=== PATIENT | female | born 1980 | race African-American/Black ===

== ENCOUNTER → 2016-11-14 | Outpatient (CLI) | payer BC ==
[2016-11-14 14:44] VITALS: BP 151/84; PULSE 102; RESP 16; TEMP 98.1; BMI 53.0
--- NOTE | 2016-11-14 18:30 | HP ---
DATE OF ADMISSION: 11/14/2016 CHIEF COMPLAINT: Morbid obesity. HISTORY OF PRESENT ILLNESS: Patient is a 35-year-old female seen today in the office for the first time. She went to a recent seminar by Dr. Ramachandran. She is interested in sleeve gastrectomy. The patient suffers from hypertension and hidradenitis. Both of these medical issues should improve with surgical weight loss. The patient denies any history of DVT or dysphagia in the past. She has had marginal weight loss with medications and exercise programs in the past. Her heaviest she believes is around 310 and currently she is at 299 with BMI of 53. She is a teacher and teaches third grade and she would like to shoot for having surgery in January. Her 6 month supervised weight loss program has been waved. PAST MEDICAL HISTORY: Hypertension, hidradenitis. PAST SURGICAL HISTORY: Boomer teeth removal. MEDICATIONS: See list. ALLERGIES: None. PHYSICAL EXAM: Height 5 feet 3, weight 135.7. BMI of 53. HEENT: Normocephalic. Sclerae anicteric. CHEST: No deformities. ABDOMEN: Soft, nontender, nondistended. No palpable hernias. EXTREMITIES: Without edema. IMPRESSION: A 35-year-old female with morbid obesity. PLAN: Will proceed with upcoming sleeve gastrectomy and preoperative EGD. Risks were once again discussed with the patient in detail and these were noted to include but not limited to bleeding, infection, leak, stricture, abscess, peritonitis, fistula formation, poor weight loss, chronic reflux, respiratory failure, MA, PE, DVT, and . The patient understands and wishes to proceed.
== END ==
LOC: BARWHC3 14:32
PROVIDERS: ATTEND Surgery
DX: E66.01 Morbid (severe) obesity due to excess calories (principal)
CPT/HCPCS: 99201

== ENCOUNTER 2016-12-08 10:33 | Day surgery (SDC) | payer BC ==
[2016-12-07 08:19] VITALS: BMI 53.1
[~2016-12-08 10:33] MED LIST: LACTATED RINGERS 1,000 ML IV SCH; LIDOCAINE 1% 20 ML VIAL (10MG/ML) FOR IV START INTRADERMA PRN
[2016-12-08 11:14] VITALS: RESP 16; TEMP 98.7
[2016-12-08] MEDS ORDERED: PROPOFOL 10 MG/ML 20 ML VIAL IV ONE (11:32)
--- NOTE | 2016-12-08 11:44 | P.PCN ---
Date of Procedure: 12/08/16 Preoperative Diagnosis: Postoperative Diagnosis: Procedure(s) Performed: Preoperative Dx: GERD Postoperative Dx: Mild gastritis Procedure: EGD with Bx Anesthesia: Sedation Endoscopist: Dr. Alamo Specimens: Antrum Endoscopic Procedure: The patient was on the endoscopy table in the left decubitus position. The Olympus gastroscope was inserted into the oropharynx and passed under direct visualization to the region of the third portion of the duodenum. From that point the scope was slowly withdrawn inspecting all surfaces carefully. There were no neoplastic inflammatory or polypoid lesions throughout the duodenum. The pylorus was widely patent. The stomach was carefully inspected. There was mild gastritis present. A biopsy of the antrum took place to rule out H. pylori. Retroflexion revealed a normal hiatus. The esophagus was then carefully examined. There were no neoplastic inflammatory or polypoid lesions throughout the visualized esophagus. The patient was then taken to the recovery room in stable condition per anesthesia guidelines. Recommendations: Await biopsies results. Will plan coming sleeve gastrectomy. Implants: Indications for Procedure: Operative Findings: Description of Procedure:
[2016-12-08 12:13] VITALS: BP 104/72; PULSE 95
== END 2016-12-08 12:34 | disposition home or self-care (01) ==
LOC: ORWHC2ENDO 10:33
PROVIDERS: ATTEND Surgery
DX: K29.50 Unspecified chronic gastritis without bleeding (principal); E66.01 Morbid (severe) obesity due to excess calories; Z68.43 Body mass index [BMI] 50.0-59.9, adult; I10 Essential (primary) hypertension; Z79.899 Other long term (current) drug therapy
CPT/HCPCS: 81025; 88305; 88342; 43239; J2704

== ENCOUNTER → 2017-01-01 | Outpatient (CLI) | payer BC ==
[2017-01-01 12:39] VITALS: BMI 54.7
== END | disposition home or self-care (01) ==
LOC: BARWHC3 08:43
PROVIDERS: ATTEND Surgery
DX: E66.01 Morbid (severe) obesity due to excess calories (principal)
CPT/HCPCS: 97804

== ENCOUNTER → 2017-01-02 | Outpatient (CLI) | payer BC ==
[2017-01-02 14:54] VITALS: BP 104/70; PULSE 90; RESP 20; TEMP 98.6; BMI 54.3
--- NOTE | 2017-01-02 19:19 | P.BASOAP ---
Subjective Principal diagnosis: Morbid obesity Patient doing well today. She had a recent upper endoscopy. Gastritis was found on EGD. She has her psych evaluation scheduled for this Sunday. Objective - Vital Signs Vital signs: Vital Signs Temp 98.6 F 01/02/17 14:50 Pulse 90 01/02/17 14:50 Resp 20 01/02/17 14:50 BP 104/70 01/02/17 14:50 Pulse Ox Intake & Output 01/02/17 01/02/17 01/03/17 06:59 18:59 06:59 Weight 139.344 kg - Exam Abdomen: Soft, nontender, nondistended Assessment/Plan (1) Morbid obesity Narrative/Plan: Await psych letter. Patient I discussed the sleeve gastrectomy again in detail. The or october she'll consent form was reviewed in detail. All questions were answered. We'll proceed with sleeve gastrectomy hopefully by mid-January. Plan: Date: 01/02/17 Initial Weight: 135.794 kg Initial BMI: 53.0 Current Weight: 139.344 kg Current BMI: 54.3 Type of Surgery: Vertical Sleeve Gastrectomy Total Volume in Band: Previous Volume: Volume Removed: Volume Added: Band Size:
== END ==
LOC: BARWHC3 14:20
PROVIDERS: ATTEND Surgery
DX: E66.01 Morbid (severe) obesity due to excess calories (principal)
CPT/HCPCS: 99211

== ENCOUNTER → 2017-01-30 | Outpatient (CLI) | payer BC ==
[2017-01-30 11:57] LABS: Basophils % (A) 0 %; CH 27.2; CHCM 32.2; Eosinophils # (A) 0.1 k/uL (0-0.7); Eosinophils % (A) 1 %; HCT 37.7 % (34.0-46.0); HDW 2.23; HGB 12.5 gm/dL (11.4-16.0); Luc # (Auto) 0.17; Luc % (Auto) 3; Lymphocytes # (A) 1.9 k/uL (1.0-4.8); Lymphocytes % (A) 34 %; MCH 28.2 pg (25.0-35.0); MCHC 33.2 g/dL (31.0-37.0); MCV 84.8 fL (80.0-100.0); Mean Platelet Volume 7.7; Monocytes # (A) 0.3 k/uL (0-1.0); Monocytes % (A) 6 %; Neutrophils # (A) 3.1 k/uL (1.3-7.7); Neutrophils % (A) 56 %; RBC 4.45 m/uL (3.80-5.40); RDW 14.8 % (11.5-15.5); WBC 5.6 k/uL (3.8-10.6); WBC (Perox) 6.02
[2017-01-30 12:05] LABS: ALT 36 U/L (9-52); AST 29 U/L (14-36); Alkaline Phosphatase 59 U/L (38-126); Anion Gap 11 mmol/L; Blood Urea Nitrogen 13 mg/dL (7-17); Calcium 8.9 mg/dL (8.4-10.2); Carbon Dioxide 21 mmol/L (22-30); Chloride 106 mmol/L (98-107); Glucose 81 mg/dL (74-99); Non-African American GFR(MDRD) >60 (>60 ml/min/1.73 sqM); Potassium 4.1 mmol/L (3.5-5.1); Sodium 138 mmol/L (137-145); Total Bilirubin 0.4 mg/dL (0.2-1.3)
== END ==
LOC: LABPAT 11:18
PROVIDERS: ATTEND Surgery
DX: Z01.812 Encounter for preprocedural laboratory examination (principal)
CPT/HCPCS: 80053; 85025

== ENCOUNTER 2017-02-05 10:40 | Inpatient (IN) | payer BC ==
[~2017-02-05 10:40] MED LIST changes: +DEXAMETHASONE SOD PHOSPHATE 10 MG/ML 1 ML VIAL IV ONE; +ENOXAPARIN 40 MG/0.4 ML SYRINGE SQ ONE; -LACTATED RINGERS 1,000 ML IV SCH; -LIDOCAINE 1% 20 ML VIAL (10MG/ML) FOR IV START INTRADERMA PRN; +ONDANSETRON 4 MG/2 ML VIAL IVP ONE; +ceFAZolin 3 GM in SODIUM CHLORIDE 0.9% 100 ML IVPB ONE
[2017-02-05] MEDS: LACTATED RINGERS 1,000 ML IV SCH (13:35)
[2017-02-05] MEDS ORDERED: LIDOCAINE 1% 20 ML VIAL (10MG/ML) FOR IV START INTRADERMA ONE (13:35)
--- NOTE | 2017-02-05 14:44 | P.GSHP ---
History of Present Illness H&P Date: 02/05/17 Chief Complaint: Obesity Patient is well known to our service. The patient is been followed since October of this year for morbid obesity. She is interested in sleeve gastrectomy. The patient suffers from hypertension and hidradenitis. She had an upper endoscopy showing just mild gastritis. No history of DVT or dysphagia. BMI is 53. Past Medical History Past Medical History: Hypertension, Skin Disorder Additional Past Medical History / Comment(s): takes vibramycin for acne History of Any Multi-Drug Resistant Organisms: None Reported Past Surgical History: No Surgical Hx Reported Additional Past Surgical History / Comment(s): wisdom teeth Past Anesthesia/Blood Transfusion Reactions: No Reported Reaction Additional Past Anesthesia/Blood Transfusion Reaction / Comment(s): NEVER HAD GENERAL ANETHESIA Past Psychological History: No Psychological Hx Reported Smoking Status: Never smoker Past Alcohol Use History: Occasional Past Drug Use History: None Reported - Past Family History Mother Family Medical History: No Reported History Medications and Allergies Home Medications Medication Instructions Recorded Confirmed Type Doxycycline Hyclate [Vibramycin] 100 mg PO DAILY 11/15/16 01/29/17 History Spironolactone 25 mg PO QAM 11/15/16 01/29/17 History Multivitamins, Thera [Multivitamin 1 tab PO DAILY 01/29/17 01/29/17 History (formulary)] Naproxen Sodium [Aleve] 220 - 440 mg PO Q6H PRN 01/29/17 01/29/17 History Allergies Allergy/AdvReac Type Severity Reaction Status Date / Time No Known Allergies Allergy Verified 02/05/17 13:17 Surgical - Exam Vital Signs Temp Pulse Resp BP Pulse Ox 97.5 F L 74 16 125/79 99 02/05/17 13:25 02/05/17 13:25 02/05/17 13:25 02/05/17 13:25 02/05/17 13:25 Physical exam: General: Well-developed, well-nourished HEENT: Normocephalic, sclerae nonicteric Abdomen: Nontender, nondistended Extremities: No edema Neuro: Alert and oriented Assessment and Plan (1) Morbid obesity Narrative/Plan: Will proceed with sleeve gastrectomy at this time. Risks have been reviewed with the patient on multiple occasions and are noted to include but not limited to bleeding, infection, stricture formation, reflux, leak, abscess, fistula formation, poor weight loss, [place], PE, DVT, and . She understands and wishes to proceed. Status: Acute
[2017-02-05] MEDS ORDERED: MIDAZOLAM 2 MG/2 ML VIAL ONE (14:58)
[2017-02-05] MEDS ORDERED: ROCURONIUM BROMIDE 10 MG/ML 10 ML VIAL IV ONE (14:58)
[2017-02-05] MEDS ORDERED: LIDOCAINE 1% INJ 10MG/ML (20 ML MDV) ONE (14:58)
[2017-02-05] MEDS ORDERED: SUCCINYLCHOLINE CHLORIDE VIAL 200 MG/10 ML VIAL IV ONE (14:58)
[2017-02-05] MEDS ORDERED: fentaNYL (PF) 50 MCG/ML 2 ML AMP ONE (14:58)
[2017-02-05] MEDS ORDERED: GLYCOPYRROLATE 0.2 MG/ML 2 ML VIAL ONE (14:58)
[2017-02-05] MEDS ORDERED: METHYLENE BLUE 10 MG/ML 1 ML VIAL ONE (14:58)
[2017-02-05] MEDS ORDERED: LABETALOL 5 MG/ML VIAL MDV ONE (14:58)
[2017-02-05] MEDS ORDERED: PROPOFOL 10 MG/ML 20 ML VIAL IV ONE (14:58)
[2017-02-05] MEDS ORDERED: LACTATED RINGERS 1,000 ML IV ONE (15:15)
[2017-02-05] MEDS ORDERED: BUPIVACAINE-EPI 0.5%-1:200,000 10 ML VIAL SQ ONE ×2 (15:41→17:07)
[2017-02-05] MEDS: HYDROmorphone 1 MG/ML 1 ML SYRINGE IVP PRN ×6 (17:23→21:42)
[2017-02-05] MEDS ORDERED: NALOXONE 0.4 MG/ML 1 ML VIAL IV PRN (17:37)
[2017-02-05] MEDS ORDERED: diphenhydrAMINE 50 MG/ML 1 ML VIAL IVP PRN (17:37)
[2017-02-05] MEDS ORDERED: ACETAMINOPHEN IV (For NPO) 1,000 MG in EMPTY BAG 1 BAG IVPB ONE (17:37)
--- NOTE | 2017-02-05 17:45 | P.OP ---
Date of Procedure: 02/05/17 Preoperative Diagnosis: Postoperative Diagnosis: Procedure(s) Performed: PREOPERATIVE DIAGNOSIS: Morbid obesity, hypertension POSTOPERATIVE DIAGNOSIS: Same PROCEDURE: Laparoscopic sleeve gastrectomy SURGEON: Jasmeet EBL: Minimal ANESTHESIA: General COMPLICATIONS: None OPERATIVE PROCEDURE: Patient was placed in the operating table in the supine position. She was placed under general anesthesia at that time. The abdomen was prepped and draped in sterile fashion after the patient was placed in lithotomy. A 5 mm optical trocar was used to enter the abdominal cavity in the left upper quadrant. Insufflation took place to 15 millimeters mercury. An additional right subxiphoid 5 mm trocar was then placed under direct visualization and then removed. 2 additional 5 mm trochars were placed in the right upper quadrant and left upper quadrant under direct visualization and a 15 mm trocar in the supraumbilical location. The liver was retracted using a medium Jose Francisco liver retractor through the right subxiphoid trocar site. The hiatus was inspected. The patient had no visible hiatal hernia At that point I moved to the mid aspect of the greater curvature the stomach. The short gastric vasculature was divided using a LigaSure device proximally. I then switched and divided the short gastrics distally to a 3-4 cm from the pylorus. The dissection took place up to the left diaphragmatic crura at that point. The posterior short gastrics were likewise divided using the LigaSure device. Once the stomach was fully mobilized the blunt tipped 40-Croat[place] bougie dilator was advanced into the stomach and advanced all the way to the prepyloric location. A black echelon 60 stapler was utilized and fired tangentially across the antrum taking care to avoid narrowing at the incisura angularis. Subsequent firings of the stapler took place. A total of 4 green echelon 60 staplers with seam guard took place proximally staying on the outer edge of our dilator. Once we reached the most proximal portion of the stomach a single firing of the gold echelon 60 stapler without seem guard took place. The oral gastric tube was reinserted. The stomach was insufflated with approximately 100 mL of methylene blue. No evidence of leak or obstruction was seen. The distal aspect of the sleeve was then reapproximated to the gastrosplenic and gastrocolic ligament using a short running 2-0 strata fix suture. This was done to prevent kinking or twisting of the sleeve. Tisseel fibrin glue was used along the length of the staple line. The stomach remnant was removed from the 15 mm trocar site without difficulty. The fascia at the 15 more site was closed using interrupted 0 Vicryl sutures with the laparoscopic suture passer and [place] technique. The insufflation was evacuated. The skin at all 5 incisions were closed using 4-0 Monocryl sutures. Steri-Strips and sterile dressings were then applied. DISPOSITION: Stable to recovery room Implants: Indications for Procedure: Operative Findings: Description of Procedure:
[2017-02-05] MEDS ORDERED: KETOROLAC 30 MG/ML 1 ML VIAL IVP ONE (17:52)
[2017-02-05] MEDS ORDERED: hydrALAZINE HCL 20 MG/ML 1 ML VIAL IVP ONE (17:53)
[2017-02-05] MEDS: 0.9% NACL WITH KCL 20 MEQ/L 1,000 ML IV SCH (19:41)
[2017-02-05] MEDS: ONDANSETRON 4 MG/2 ML VIAL IVP PRN (19:44)
[2017-02-05] MEDS: ALBUTEROL NEBULIZED 2.5 MG/3 ML INHALATION SCH (21:39)
[2017-02-06] MEDS: HYDROmorphone 1 MG/ML 1 ML SYRINGE IVP PRN ×4 (00:41→08:00)
[2017-02-06] MEDS: 0.9% NACL WITH KCL 20 MEQ/L 1,000 ML IV SCH ×2 (02:11→11:56)
[2017-02-06] MEDS: ONDANSETRON 4 MG/2 ML VIAL IVP PRN (04:06)
[2017-02-06] MEDS: LACTATED RINGERS 1,000 ML IV SCH (07:38)
[2017-02-06] MEDS: ENOXAPARIN 40 MG/0.4 ML SYRINGE SQ SCH ×2 (07:40→20:23)
[2017-02-06] MEDS: PANTOPRAZOLE 40 MG/10 ML VIAL IV SCH ×2 (07:40→08:44)
[2017-02-06 08:43] LABS: Basophils % (A) 0 %; CH 28.2; CHCM 32.1; Eosinophils % (A) 0 %; HCT 35.6 % (34.0-46.0); HDW 2.29; HGB 11.2 gm/dL (11.4-16.0); Luc # (Auto) 0.12; Luc % (Auto) 1; Lymphocytes # (A) 1.2 k/uL (1.0-4.8); Lymphocytes % (A) 12 %; MCH 27.9 pg (25.0-35.0); MCHC 31.6 g/dL (31.0-37.0); MCV 88.4 fL (80.0-100.0); Monocytes # (A) 0.5 k/uL (0-1.0); Monocytes % (A) 5 %; Neutrophils # (A) 8.3 k/uL (1.3-7.7); Neutrophils % (A) 82 %; RBC 4.03 m/uL (3.80-5.40); RDW 15.7 % (11.5-15.5); WBC 10.1 k/uL (3.8-10.6); WBC (Perox) 9.71
[2017-02-06] MEDS ORDERED: SODIUM CHLORIDE 0.9% 1,000 ML BAG ONE (08:44)
[2017-02-06] MEDS: 1: MVI, ADULT NO.4 WITH VIT K 10 ML, THIAMINE 100 MG, FOLIC ACID 1 MG, POTASSIUM CHLORID IV SCH ×12 (08:44→20:16)
[2017-02-06] MEDS: SIMETHICONE 40 MG/0.6 ML DROPS 2,000 MG/30 ML BOTTLE PO PRN ×2 (08:45→16:34)
[2017-02-06] MEDS: HYOSCYAMINE ORAL DROPS 1.875 MG/15 ML BOTTLE PO PRN ×2 (08:45→20:24)
[2017-02-06 09:04] LABS: Anion Gap 9 mmol/L; Blood Urea Nitrogen 6 mg/dL (7-17); Calcium 8.3 mg/dL (8.4-10.2); Carbon Dioxide 20 mmol/L (22-30); Chloride 106 mmol/L (98-107); Magnesium 1.7 mg/dL (1.6-2.3); Non-African American GFR(MDRD) >60 (>60 ml/min/1.73 sqM); Phosphorous 3.1 mg/dL (2.5-4.5); Potassium 4.6 mmol/L (3.5-5.1); Sodium 135 mmol/L (137-145)
[2017-02-06] MEDS: ALBUTEROL NEBULIZED 2.5 MG/3 ML INHALATION SCH ×4 (09:26→19:52)
--- NOTE | 2017-02-06 09:36 | FL ---
SINGLE CONTRAST UPPER GI EXAMINATION: CLINICAL HISTORY: 36-year-old female postop bariatric surgery, gastric sleeve yesterday. TECHNIQUE: Single contrast exam performed with 50 ml Omnipaque 350 contrast. Total fluoroscopy time: 27 seconds. Total images: 20. FINDINGS: The patient swallowed oral contrast without difficulty or delay. Esophageal peristalsis and motility are within normal limits. There is mild pooling of contrast in the lower esophagus after consecutive swallows. However, there is otherwise good passage of contrast across the GE junction into the stoma ch. There are postsurgical changes of sleeve gastrectomy with a diffusely narrowed stomach. Oral cont rast passes into the duodenum. There is no evidence of contrast extravasation to suggest leak. No pos tsurgical free air seen. IMPRESSION: No evidence of leak status post sleeve gastrectomy. There is mild pooling of contrast in the lower es ophagus after consecutive swallows. No significant obstruction.
[2017-02-06] MEDS: KETOROLAC 30 MG/ML 1 ML VIAL IVP SCH ×3 (11:54→23:47)
--- NOTE | 2017-02-06 11:59 | P.CONS ---
History of Present Illness - Reason for Consult Consult date: 02/06/17 Medical management - Chief Complaint Morbid obesity - History of Present Illness This is a 36-year-old female with past medical history noted below significant for morbid obesity has admitted to the hospital for elective laparoscopic sleeve gastrectomy. Patient is postoperative day #1. She tolerated the procedure well. No complications reported. She is currently on liquid diet with good tolerance. She does not have any specific concerns or complaints. I was asked to see her for medical management. Review of Systems Review of system: 14 points review of systems were obtained and were negative except to what were mentioned in the HPI. Past Medical History Past Medical History: Hypertension, Skin Disorder Additional Past Medical History / Comment(s): takes vibramycin for acne History of Any Multi-Drug Resistant Organisms: None Reported Past Surgical History: No Surgical Hx Reported Additional Past Surgical History / Comment(s): wisdom teeth Past Anesthesia/Blood Transfusion Reactions: No Reported Reaction Additional Past Anesthesia/Blood Transfusion Reaction / Comm: NEVER HAD GENERAL ANETHESIA Past Psychological History: No Psychological Hx Reported Smoking Status: Never smoker Past Alcohol Use History: Occasional Past Drug Use History: None Reported - Past Family History Mother Family Medical History: No Reported History Medications and Allergies Home Medications Medication Instructions Recorded Confirmed Type Doxycycline Hyclate [Vibramycin] 100 mg PO DAILY 11/15/16 02/05/17 History Spironolactone 25 mg PO QAM 11/15/16 02/05/17 History Multivitamins, Thera [Multivitamin 1 tab PO DAILY 01/29/17 02/05/17 History (formulary)] Naproxen Sodium [Aleve] 220 - 440 mg PO Q6H PRN 01/29/17 02/05/17 History Allergies Allergy/AdvReac Type Severity Reaction Status Date / Time No Known Allergies Allergy Verified 02/05/17 18:09 Physical Exam Vitals: Vital Signs Temp Pulse Pulse Pulse Resp BP BP 02/06/17 11:00 98.1 F 63 17 142/64 02/06/17 09:40 76 02/06/17 09:26 68 02/06/17 07:57 98.1 F 65 16 128/66 02/06/17 02:00 98.0 F 72 16 122/65 02/05/17 21:48 85 02/05/17 21:44 66 02/05/17 19:00 98.1 F 72 16 137/71 02/05/17 18:07 145/81 02/05/17 18:02 162/91 02/05/17 17:57 69 16 164/97 02/05/17 17:42 60 16 153/95 02/05/17 17:26 59 L 16 148/92 02/05/17 17:11 97.2 F L 69 16 136/86 02/05/17 13:25 97.5 F L 74 16 125/79 Pulse Ox 02/06/17 11:00 02/06/17 09:40 02/06/17 09:26 02/06/17 07:57 96 02/06/17 02:00 97 02/05/17 21:48 02/05/17 21:44 97 02/05/17 19:00 98 02/05/17 18:07 02/05/17 18:02 02/05/17 17:57 95 02/05/17 17:42 94 L 02/05/17 17:26 99 02/05/17 17:11 100 02/05/17 13:25 99 Intake and Output 02/05/17 02/06/17 02/06/17 22:59 06:59 14:59 Intake Total 1140 1200 Output Total 20 Balance 1120 1200 Intake: IV 850 Intake, IV Titration 290 1200 Amount 0.9% NaCl with KCl 20 Meq 150 1200 /l 1,000 ml @ 150 mls/hr IV .Q6H40M [facility] Rx#: [id number] Lactated Ringers 1,000 ml 140 @ 20 mls/hr IV .Q24H [facility] Rx#:[id number] Output: Estimated Blood Loss 20 Other: Voiding Method Toilet General: The patient is awake and alert, in no distress Eye: there is normal conjunctiva bilaterally. Neck: The neck is supple, there is no JVD. Cardiovascular: Normal S1-S2, no S3-S4, no murmurs. Respiratory: Lungs clear to auscultation bilaterally Gastrointestinal: Abdomen is soft, nontender Musculoskeletal: There is no pedal edema. Neurological:. Speech is normal. Skin: Skin is warm and dry Results CBC & Chem 7: 02/06/17 08:10 02/06/17 08:10 Labs: Abnormal Lab Results - Last 24 Hours (Table) 02/06/17 02/06/17 Range/Units 08:10 08:10 Hgb 11.2 L (11.4-16.0) gm/dL RDW 15.7 H (11.5-15.5) % Neutrophils # 8.3 H (1.3-7.7) k/uL Sodium 135 L (137-145) mmol/L Carbon Dioxide 20 L (22-30) mmol/L BUN 6 L (7-17) mg/dL Calcium 8.3 L (8.4-10.2) mg/dL Assessment and Plan Plan: 1. Morbid obesity postoperative day #1 status post laparoscopic sleeve gastrectomy 2. Essential hypertension: Blood pressure well controlled Today, I reviewed her medication list lab work results. Continue current management. Encouraged oral hydration. Thank you very much for the consultation.
[2017-02-06] MEDS: SPIRONOLACTONE 25 MG TAB PO SCH (14:32)
[2017-02-06 15:06] VITALS: RESP 16
[2017-02-06 15:27] VITALS: BMI 52.6
[2017-02-06] MEDS: HYDROcodone/APAP 5-325MG 1 EACH TAB PO PRN ×2 (16:34→20:24)
--- NOTE | 2017-02-06 17:58 | P.PN ---
Subjective Principal diagnosis: Morbid obesity Patient seems to be doing well today. Mild nausea. Some hiccups. Overall pain is well-controlled. Upper GI today shows no evidence of leak or obstruction. Objective - Vital Signs Vital signs: Vital Signs Temp 97.4 F L 02/06/17 15:04 Pulse 70 02/06/17 15:04 Resp 16 02/06/17 15:04 BP 139/84 02/06/17 15:04 Pulse Ox 97 02/06/17 15:04 Intake & Output 02/05/17 02/06/17 02/06/17 18:59 06:59 18:59 Intake Total 1950 1490 900 Output Total 20 Balance 1930 1490 900 Weight 134.8 kg 134.8 kg Intake: IV 1950 Intake, IV Titration 1490 900 Amount 0.9% NaCl with KCl 20 Meq 1350 300 /l 1,000 ml @ 150 mls/hr IV .Q6H40M [facility] Rx#: [id number] Lactated Ringers 1,000 ml 140 @ 20 mls/hr IV .Q24H [facility] Rx#:[id number] Mvi, Adult No.4 with Vit 600 K 10 ml Thiamine 100 mg Folic Acid 1 mg Potassium Chloride 20 meq In Sodium Chloride 0.9% 1, 000 ml @ 100 mls/hr IV . BY DURATION [facility] Rx#: [id number] Output: Estimated Blood Loss 20 Other: Voiding Method Toilet - Labs CBC & Chem 7: 02/06/17 08:10 02/06/17 08:10 Labs: Abnormal Lab Results - Last 24 Hours (Table) 02/06/17 02/06/17 Range/Units 08:10 08:10 Hgb 11.2 L (11.4-16.0) gm/dL RDW 15.7 H (11.5-15.5) % Neutrophils # 8.3 H (1.3-7.7) k/uL Sodium 135 L (137-145) mmol/L Carbon Dioxide 20 L (22-30) mmol/L BUN 6 L (7-17) mg/dL Calcium 8.3 L (8.4-10.2) mg/dL Assessment and Plan (1) Morbid obesity Narrative/Plan: Continue bariatric liquid diet. Increase ambulation. Monitor fluid intake. Status: Acute
[2017-02-07] MEDS: SIMETHICONE 40 MG/0.6 ML DROPS 2,000 MG/30 ML BOTTLE PO PRN (03:29)
[2017-02-07] MEDS: HYDROcodone/APAP 5-325MG 1 EACH TAB PO PRN ×2 (03:29→12:18)
[2017-02-07] MEDS: KETOROLAC 30 MG/ML 1 ML VIAL IVP SCH ×3 (07:14→18:00)
[2017-02-07] MEDS: SPIRONOLACTONE 25 MG TAB PO SCH (07:15)
[2017-02-07] MEDS: ENOXAPARIN 40 MG/0.4 ML SYRINGE SQ SCH (07:15)
[2017-02-07] MEDS: MULTIVITAMINS, THERA 1 EACH TAB PO SCH ×3 (07:15→18:05)
[2017-02-07] MEDS: PANTOPRAZOLE 40 MG/10 ML VIAL IV SCH (07:15)
[2017-02-07] MEDS: ALBUTEROL NEBULIZED 2.5 MG/3 ML INHALATION SCH ×3 (07:44→15:42)
[2017-02-07 07:48] LABS: Basophils % (A) 0 %; CH 27.5; CHCM 31.7; Eosinophils % (A) 0 %; HCT 33.5 % (34.0-46.0); HDW 2.27; HGB 10.9 gm/dL (11.4-16.0); Luc # (Auto) 0.12; Luc % (Auto) 2; Lymphocytes % (A) 28 %; MCH 28.4 pg (25.0-35.0); MCHC 32.7 g/dL (31.0-37.0); MCV 87.1 fL (80.0-100.0); Mean Platelet Volume 8.4; Monocytes # (A) 0.4 k/uL (0-1.0); Monocytes % (A) 6 %; Neutrophils # (A) 4.6 k/uL (1.3-7.7); Neutrophils % (A) 64 %; RBC 3.84 m/uL (3.80-5.40); RDW 15.1 % (11.5-15.5); WBC 7.1 k/uL (3.8-10.6); WBC (Perox) 7.25
[2017-02-07 08:00] LABS: Anion Gap 8 mmol/L; Blood Urea Nitrogen 8 mg/dL (7-17); Calcium 8.2 mg/dL (8.4-10.2); Carbon Dioxide 21 mmol/L (22-30); Chloride 108 mmol/L (98-107); Glucose 76 mg/dL (74-99); Non-African American GFR(MDRD) >60 (>60 ml/min/1.73 sqM); Potassium 4.3 mmol/L (3.5-5.1); Sodium 137 mmol/L (137-145)
[2017-02-07] MEDS ORDERED: BISACODYL 5 MG TABLET.DR PO PRN (08:00)
[2017-02-07] MEDS: LACTATED RINGERS 1,000 ML IV SCH (10:36)
--- NOTE | 2017-02-07 12:51 | P.PN ---
Subjective Patient is doing well today. No events overnight. Objective - Vital Signs Vital signs: Vital Signs Temp 97.2 F L 02/07/17 07:00 Pulse 90 02/07/17 08:06 Resp 16 02/07/17 07:46 BP 142/87 02/07/17 07:00 Pulse Ox 98 02/07/17 07:00 Intake & Output 02/06/17 02/07/17 02/07/17 18:59 06:59 18:59 Intake Total 900 1790 Balance 900 1790 Weight 134.8 kg Intake: Intake, IV Titration 900 1200 Amount 0.9% NaCl with KCl 20 Meq 300 /l 1,000 ml @ 150 mls/hr IV .Q6H40M [facility] Rx#: [id number] Mvi, Adult No.4 with Vit 600 1200 K 10 ml Thiamine 100 mg Folic Acid 1 mg Potassium Chloride 20 meq In Sodium Chloride 0.9% 1, 000 ml @ 100 mls/hr IV . BY DURATION [facility] Rx#: [id number] Oral 590 Other: Voiding Method Toilet Toilet # Voids 2 - Exam General: The patient is awake and alert, in no distress Eye: there is normal conjunctiva bilaterally. Neck: The neck is supple, there is no JVD. Cardiovascular: Normal S1-S2, no S3-S4, no murmurs. Respiratory: Lungs clear to auscultation bilaterally Gastrointestinal: Abdomen is soft, nontender Musculoskeletal: There is no pedal edema. Neurological:. Speech is normal. Skin: Skin is warm and dry - Labs CBC & Chem 7: 02/07/17 06:53 02/07/17 06:53 Labs: Abnormal Lab Results - Last 24 Hours (Table) 02/07/17 02/07/17 Range/Units 06:53 06:53 Hgb 10.9 L (11.4-16.0) gm/dL Hct 33.5 L (34.0-46.0) % Chloride 108 H (98-107) mmol/L Carbon Dioxide 21 L (22-30) mmol/L Calcium 8.2 L (8.4-10.2) mg/dL Assessment and Plan Plan: 1. Morbid obesity postoperative day #2 status post laparoscopic sleeve gastrectomy 2. Essential hypertension: Blood pressure well controlled Today, I reviewed her medication list lab work results. Continue same home medication upon discharge. Vitamin supplement as directed by bariatric surgery clinic. Medically cleared for discharge.
[2017-02-07 14:54] VITALS: BP 137/79; PULSE 80; TEMP 97.9
[2017-02-07] MEDS: 1: MVI, ADULT NO.4 WITH VIT K 10 ML, THIAMINE 100 MG, FOLIC ACID 1 MG, POTASSIUM CHLORID IV SCH ×6 (18:02)
[2017-02-07] MEDS ORDERED: SODIUM CHLORIDE 0.9% 1,000 ML BAG ONE (18:02)
--- NOTE | 2017-02-07 18:49 | P.DS ---
Providers Date of admission: 02/05/17 12:42 Expected date of discharge: 02/07/17 Attending physician: David Alamo Consults: 02/05/17 17:37 Consult Physician Routine Consulting Provider: Jania Carpenter Consult Reason/Comments: Medical management Do you want consulting provider notified?: Yes Primary care physician: Love Jamil - Discharge Diagnosis(es) (1) Morbid obesity Patient admitted for elective sleep gastrectomy. Her postoperative upper GI shows no evidence of leak or obstruction. She was doing well at this time. Denies abdominal pain. Tolerating 55 ounces of liquids thus far today. Minimal nausea. She is anxious to go home. She is ambulating in the hallways. Her white blood cell count and vital signs of been stable. Patient will be discharged home with prescription for [place] and Prilosec. She will follow up me next Sunday. Current Visit: No Status: Acute Plan - Discharge Summary New Discharge Prescriptions: No Action Spironolactone 25 mg PO QAM Doxycycline Hyclate [Vibramycin] 100 mg PO DAILY Naproxen Sodium [Aleve] 220 - 440 mg PO Q6H PRN PRN Reason: Pain Multivitamins, Thera [Multivitamin (formulary)] 1 tab PO DAILY Discharge Medication List Doxycycline Hyclate [Vibramycin] 100 mg PO DAILY 11/15/16 [History] Spironolactone 25 mg PO QAM 11/15/16 [History] Multivitamins, Thera [Multivitamin (formulary)] 1 tab PO DAILY 01/29/17 [History ] Naproxen Sodium [Aleve] 220 - 440 mg PO Q6H PRN 01/29/17 [History] Follow up Appointment(s)/Referral(s): David Alamo MD [Medical Doctor] - 02/13/17 Patient Instructions/Handouts: Nutrition after Bariatric Surgery (DC), Laparoscopic Sleeve Gastrectomy (DC) Activity/Diet/Wound Care/Special Instructions: Do not lift nothing greater then 5lbs, you may shower, no scrubbing, no pools, jacuzzis, baths.
== END 2017-02-07 19:30 | disposition home or self-care (01) | DRG 621 ==
LOC: 2ORWHC 12:42 → 3SUR 17:08
PROVIDERS: ADMIT Surgery; ATTEND Surgery
PROC: 0DB64Z3 Excision of Stomach, Percutaneous Endoscopic Approach, Vertical (ICD-10-PCS; principal; 2017-02-05 13:00)
DX: E66.01 Morbid (severe) obesity due to excess calories (principal); I10 Essential (primary) hypertension; K29.70 Gastritis, unspecified, without bleeding; L73.2 Hidradenitis suppurativa; Z68.43 Body mass index [BMI] 50.0-59.9, adult; Z79.899 Other long term (current) drug therapy
CPT/HCPCS: 74240; 80048; 80051; 80053; 81025; 82310; 82565; 83735; 84100; 84520; 85025; 88307; 94640

== ENCOUNTER → 2017-02-13 | Outpatient (CLI) | payer BC ==
[2017-02-13 15:05] VITALS: BMI 51.0
--- NOTE | 2017-02-13 15:55 | P.BASOAP ---
Subjective Principal diagnosis: Morbid obesity Patient doing well today. Sleeve gastrectomy 1 week ago. Some reflux symptoms. No nausea or vomiting. Protein intake has been poor only about 10- 20 g per day. She has had very good oral liquid intake however. No pain. Objective - Vital Signs Vital signs: Intake & Output 02/12/17 02/13/17 02/13/17 18:59 06:59 18:59 Weight 130.635 kg - Exam Abdomen: Soft, nondistended, minimal incisional tenderness, incisions clean and dry Assessment/Plan (1) Morbid obesity Narrative/Plan: Patient will add additional protein powder and a variety of different food items were discussed with the dietitian today. She will follow-up with me again in 2 weeks. Continue antacids for now. Plan: Date: Initial Weight: 135.794 kg Initial BMI: Current Weight: 130.635 kg Current BMI: 51.0 Type of Surgery: Total Volume in Band: Previous Volume: Volume Removed: Volume Added: Band Size:
[2017-02-13 16:41] VITALS: BP 109/62; PULSE 66; TEMP 98.2
== END | disposition home or self-care (01) ==
LOC: BARWHC3 14:38
PROVIDERS: ATTEND Surgery
DX: E66.01 Morbid (severe) obesity due to excess calories (principal)
CPT/HCPCS: 97803; 99211

== ENCOUNTER → 2017-03-06 | Outpatient (CLI) | payer BC ==
[2017-03-06 16:07] VITALS: BP 122/73; PULSE 90; TEMP 98; BMI 49.3
[2017-03-06 16:51] LABS: CH 27.2; CHCM 31.8; HCT 36.4 % (34.0-46.0); HDW 2.31; HGB 11.9 gm/dL (11.4-16.0); MCH 28.1 pg (25.0-35.0); MCHC 32.6 g/dL (31.0-37.0); Mean Platelet Volume 8.7; RBC 4.24 m/uL (3.80-5.40); RDW 14.6 % (11.5-15.5); WBC 5.3 k/uL (3.8-10.6)
[2017-03-06 17:07] LABS: ALT 42 U/L (9-52); AST 25 U/L (14-36); Alkaline Phosphatase 74 U/L (38-126); Anion Gap 12 mmol/L; Blood Urea Nitrogen 14 mg/dL (7-17); Calcium 9.2 mg/dL (8.4-10.2); Carbon Dioxide 22 mmol/L (22-30); Chloride 105 mmol/L (98-107); Glucose 92 mg/dL (74-99); Iron 32 ug/dL (37-170); Non-African American GFR(MDRD) >60 (>60 ml/min/1.73 sqM); Potassium 4.1 mmol/L (3.5-5.1); Sodium 139 mmol/L (137-145); Total Bilirubin 0.4 mg/dL (0.2-1.3); Total Protein 7.6 g/dL (6.3-8.2)
[2017-03-06 17:57] LABS: Vitamin B12 413 pg/mL (239-931)
== END | disposition home or self-care (01) ==
LOC: BARWHC3 11:13
PROVIDERS: ATTEND Surgery
DX: Z48.815 Encounter for surgical aftercare following surgery on the digestive system (principal); E66.01 Morbid (severe) obesity due to excess calories; K90.9 Intestinal malabsorption, unspecified; E55.9 Vitamin D deficiency, unspecified; Z98.84 Bariatric surgery status
CPT/HCPCS: 36415; 80053; 82306; 82607; 83540; 84134; 84425; 85027; 97803; 99211

== ENCOUNTER → 2017-05-22 | Outpatient (CLI) | payer BC ==
[2017-05-22 16:09] VITALS: BP 107/68; PULSE 72; TEMP 98.7; BMI 41.3
--- NOTE | 2017-05-22 16:43 | P.BASOAP ---
Subjective Progress Note Date: 05/22/17 Principal diagnosis: Morbid obesity Patient doing well today. She has had 7 pounds weight loss since last visit. Mild heartburn after trying to stop her Prilosec. Adequate liquid and protein intake. No abdominal pain. She is due for 3 month labs today. Exercise level is somewhat limited at this time. Objective - Vital Signs Vital signs: Vital Signs Temp 98.7 F 05/22/17 15:59 Pulse 72 05/22/17 15:59 Resp BP 107/68 05/22/17 15:59 Pulse Ox Intake & Output 05/21/17 05/22/17 05/22/17 18:59 06:59 18:59 Weight 116.256 kg - Exam Abdomen: Soft, nontender, nondistended Assessment/Plan (1) Morbid obesity Narrative/Plan: Continue daily Prilosec. Check three-month lab work at this time. Increase exercise routine. [facility]. Follow-up 6-8 weeks Plan: Date: 05/22/17 Initial Weight: 135.794 kg Initial BMI: 48.3 Current Weight: 116.256 kg Current BMI: 41.3 Type of Surgery: Total Volume in Band: Previous Volume: Volume Removed: Volume Added: Band Size:
[2017-05-22 17:15] LABS: CH 28.2; CHCM 31.5; HCT 36.9 % (34.0-46.0); HGB 11.4 gm/dL (11.4-16.0); MCH 27.9 pg (25.0-35.0); MCHC 30.9 g/dL (31.0-37.0); MCV 90.2 fL (80.0-100.0); RBC 4.09 m/uL (3.80-5.40); RDW 15.4 % (11.5-15.5); WBC 6.6 k/uL (3.8-10.6)
[2017-05-22 17:26] LABS: ALT 32 U/L (9-52); AST 24 U/L (14-36); Alkaline Phosphatase 66 U/L (38-126); Anion Gap 8 mmol/L; Blood Urea Nitrogen 19 mg/dL (7-17); Calcium 9.1 mg/dL (8.4-10.2); Carbon Dioxide 25 mmol/L (22-30); Chloride 105 mmol/L (98-107); Glucose 81 mg/dL (74-99); Non-African American GFR(MDRD) >60 (>60 ml/min/1.73 sqM); Sodium 138 mmol/L (137-145); Total Bilirubin 0.2 mg/dL (0.2-1.3); Total Protein 7.7 g/dL (6.3-8.2)
== END | disposition home or self-care (01) ==
LOC: BARWHC3 15:38
PROVIDERS: ATTEND Surgery
DX: E66.01 Morbid (severe) obesity due to excess calories (principal); Z68.41 Body mass index [BMI] 40.0-44.9, adult
CPT/HCPCS: 36415; 80053; 82306; 82607; 83540; 84425; 84590; 85027; 97803; 99211

== ENCOUNTER → 2017-07-03 | Outpatient (CLI) | payer BC ==
[2017-07-03 16:01] VITALS: BP 121/78; PULSE 81; TEMP 97.8; BMI 44.7
--- NOTE | 2017-07-03 17:17 | P.BASOAP ---
Subjective Progress Note Date: 07/03/17 Principal diagnosis: Morbid obesity Patient returns for evaluation. 4 pounds weight loss since last visit. Still taking her antiacids and without them does have reflux. Her iron and vitamin a were recently noted to be slightly low. Denies nausea or vomiting. No abdominal pain. Objective - Vital Signs Vital signs: Vital Signs Temp 97.8 F 07/03/17 15:59 Pulse 81 07/03/17 15:59 Resp BP 121/78 07/03/17 15:59 Pulse Ox Intake & Output 07/02/17 07/03/17 07/03/17 18:59 06:59 18:59 Weight 114.577 kg - Exam Physical exam: General: Well-developed, well-nourished HEENT: Normocephalic, sclerae nonicteric Abdomen: Nontender, nondistended Extremities: No edema Neuro: Alert and oriented Assessment/Plan (1) Morbid obesity Narrative/Plan: (Vitamin A and iron supplementation. Continue antiacids as needed. Continue dietary and exercise regimen. Plan: Date: 07/03/17 Initial Weight: 135.794 kg Initial BMI: 53.0 Current Weight: 114.577 kg Current BMI: 44.7 Type of Surgery: Total Volume in Band: Previous Volume: Volume Removed: Volume Added: Band Size:
== END | disposition home or self-care (01) ==
LOC: BARWHC3 15:34
PROVIDERS: ATTEND Surgery
DX: E66.01 Morbid (severe) obesity due to excess calories (principal); Z68.41 Body mass index [BMI] 40.0-44.9, adult
CPT/HCPCS: 99211

== ENCOUNTER → 2017-08-21 | Outpatient (CLI) | payer BC ==
[2017-08-21 16:09] VITALS: BP 131/72; PULSE 101; TEMP 97.6; BMI 43.4
[2017-08-21 17:11] LABS: HCT 34.4 % (34.0-46.0); HGB 11.2 gm/dL (11.4-16.0); MCH 28.8 pg (25.0-35.0); MCHC 32.5 g/dL (31.0-37.0); MCV 88.5 fL (80.0-100.0); Mean Platelet Volume 8.1; Platelet Count 221 k/uL (150-450); RBC 3.89 m/uL (3.80-5.40); RDW 13.3 % (11.5-15.5); WBC 5.7 k/uL (3.8-10.6)
[2017-08-21 17:26] LABS: ALT 25 U/L (9-52); AST 23 U/L (14-36); Alkaline Phosphatase 64 U/L (38-126); Anion Gap 11 mmol/L; Blood Urea Nitrogen 17 mg/dL (7-17); Calcium 9.2 mg/dL (8.4-10.2); Carbon Dioxide 25 mmol/L (22-30); Chloride 104 mmol/L (98-107); Glucose 88 mg/dL (74-99); Potassium 3.7 mmol/L (3.5-5.1); Sodium 140 mmol/L (137-145); Total Bilirubin 0.2 mg/dL (0.2-1.3); Total Protein 7.7 g/dL (6.3-8.2)
[2017-08-22 13:27] LABS: Vitamin A 30 ug/dL (38-106)
[2017-08-23 06:06] LABS: Vitamin B1 41 ug/L (38-122)
== END | disposition home or self-care (01) ==
LOC: BARWHC3 15:38
PROVIDERS: ATTEND Surgery
DX: K90.89 Other intestinal malabsorption (principal); E55.9 Vitamin D deficiency, unspecified; E66.01 Morbid (severe) obesity due to excess calories; Z68.41 Body mass index [BMI] 40.0-44.9, adult
CPT/HCPCS: 36415; 80053; 82306; 82607; 83540; 84425; 84590; 85027; 97803; 99211

== ENCOUNTER → 2017-10-02 | Outpatient (CLI) | payer BC ==
[2017-10-02 15:46] VITALS: BP 123/67; PULSE 76; RESP 16; TEMP 98.1; BMI 43.6
--- NOTE | 2017-10-02 16:25 | P.BASOAP ---
Subjective Progress Note Date: 10/02/17 Principal diagnosis: Morbid obesity Patient doing well today. She has gained 1 pound recently. She just returned from vacation. Her liquid intake is less than it has been in the past. No heartburn. Taking antiacids every other day. Objective - Vital Signs Vital signs: Vital Signs Temp 98.1 F 10/02/17 15:44 Pulse 76 10/02/17 15:44 Resp 16 10/02/17 15:44 BP 123/67 10/02/17 15:44 Pulse Ox Intake & Output 10/01/17 10/02/17 10/02/17 18:59 06:59 18:59 Weight 111.754 kg - Exam Abdomen: Soft, nontender, nondistended Assessment/Plan (1) Morbid obesity Narrative/Plan: Continue dietary and exercise regimen. Increase liquid intake. Follow-up 4-6 weeks. Plan: Date: 10/02/17 Initial Weight: 135.794 kg Initial BMI: 53.0 Current Weight: 111.754 kg Current BMI: 43.6 Type of Surgery: Total Volume in Band: Previous Volume: Volume Removed: Volume Added: Band Size:
== END | disposition home or self-care (01) ==
LOC: BARWHC3 15:36
PROVIDERS: ATTEND Surgery
DX: E66.01 Morbid (severe) obesity due to excess calories (principal); Z68.41 Body mass index [BMI] 40.0-44.9, adult
CPT/HCPCS: 99211

== ENCOUNTER → 2017-12-04 | Outpatient (CLI) | payer BC ==
[2017-12-04 15:45] VITALS: BP 108/72; PULSE 94; RESP 16; TEMP 98; BMI 42.4
--- NOTE | 2017-12-04 16:04 | P.BASOAP ---
Subjective Progress Note Date: 12/04/17 Principal diagnosis: Morbid obesity Patient doing well at this time. No new complaints. No nausea vomiting. No reflux. Still takes antiacids every 2-3 days. Able to eat slightly more than previously. Good weight loss however of 7 pounds. Walks approximately 3.5 miles per day. Objective - Vital Signs Vital signs: Vital Signs Temp 98 F 12/04/17 15:42 Pulse 94 12/04/17 15:42 Resp 16 12/04/17 15:42 BP 108/72 12/04/17 15:42 Pulse Ox Intake & Output 12/03/17 12/04/17 12/04/17 18:59 06:59 18:59 Weight 108.664 kg - Exam Abdomen: Soft, nontender, nondistended Assessment/Plan (1) Morbid obesity Narrative/Plan: Continue when necessary/intermittent PPIs. Continue dietary neck she says regimen. Follow-up 6-8 weeks. Plan: Date: 12/04/17 Initial Weight: 135.794 kg Initial BMI: 53.0 Current Weight: 108.664 kg Current BMI: 42.4 Type of Surgery: Total Volume in Band: Previous Volume: Volume Removed: Volume Added: Band Size:
== END | disposition home or self-care (01) ==
LOC: BARWHC3 15:35
PROVIDERS: ATTEND Surgery
DX: E66.01 Morbid (severe) obesity due to excess calories (principal); Z68.41 Body mass index [BMI] 40.0-44.9, adult
CPT/HCPCS: 99211

== ENCOUNTER → 2018-02-05 | Outpatient (CLI) | payer BC ==
[2018-02-05 14:57] VITALS: BP 109/70; PULSE 56; RESP 16; TEMP 98.5; BMI 42.5
[2018-02-05 15:14] LABS: HCT 37.2 % (34.0-46.0); HGB 11.7 gm/dL (11.4-16.0); MCH 27.6 pg (25.0-35.0); MCHC 31.4 g/dL (31.0-37.0); MCV 87.7 fL (80.0-100.0); Mean Platelet Volume 7.7; Platelet Count 225 k/uL (150-450); RBC 4.24 m/uL (3.80-5.40); RDW 13.7 % (11.5-15.5); WBC 5.2 k/uL (3.8-10.6)
[2018-02-05 15:39] LABS: ALT 25 U/L (9-52); AST 21 U/L (14-36); Alkaline Phosphatase 64 U/L (38-126); Anion Gap 7 mmol/L; Blood Urea Nitrogen 13 mg/dL (7-17); Calcium 9.1 mg/dL (8.4-10.2); Carbon Dioxide 26 mmol/L (22-30); Chloride 105 mmol/L (98-107); Glucose 85 mg/dL (74-99); Potassium 4.3 mmol/L (3.5-5.1); Sodium 138 mmol/L (137-145); Total Bilirubin 0.2 mg/dL (0.2-1.3); Total Protein 7.5 g/dL (6.3-8.2)
--- NOTE | 2018-02-05 17:09 | P.BASOAP ---
Subjective Progress Note Date: 02/05/18 Principal diagnosis: Morbid obesity Patient today for postoperative evaluation. She is 1 year post sleeve gastrectomy. Since her last visit she is state about the same weight. She believes that she is taking the appropriate amount of calories however slightly greater percentage of carbohydrates and she should be. Activity somewhat decreased recently as well. Denies pain. No nausea or vomiting. No reflux. Objective - Vital Signs Vital signs: Vital Signs Temp 98.5 F 02/05/18 14:54 Pulse 56 L 02/05/18 14:54 Resp 16 02/05/18 14:54 BP 109/70 02/05/18 14:54 Pulse Ox Intake & Output 02/04/18 02/05/18 02/05/18 18:59 06:59 18:59 Weight 108.862 kg - Exam Abdomen: Soft, nondistended, nontender - Labs CBC & Chem 7: 02/05/18 14:44 02/05/18 14:44 Assessment/Plan (1) Morbid obesity Narrative/Plan: Patient overall doing well. Will be seen by the dietitian today. Check one year labs at this time. Follow-up 3 months. Plan: Date: 02/05/18 Initial Weight: 135.794 kg Initial BMI: 53.0 Current Weight: 108.862 kg Current BMI: 42.5 Type of Surgery: Total Volume in Band: Previous Volume: Volume Removed: Volume Added: Band Size:
[2018-02-05 19:53] LABS: Folate, Serum 6.4 ng/mL; Vitamin D 25 Hydroxy 67.8 ng/mL (30.0-100.0)
== END | disposition home or self-care (01) ==
LOC: BARWHC3 13:07
PROVIDERS: ATTEND Surgery
DX: Z48.815 Encounter for surgical aftercare following surgery on the digestive system (principal); E66.01 Morbid (severe) obesity due to excess calories; K90.89 Other intestinal malabsorption; E55.9 Vitamin D deficiency, unspecified; Z98.84 Bariatric surgery status; Z68.41 Body mass index [BMI] 40.0-44.9, adult
CPT/HCPCS: 36415; 80053; 82306; 82607; 82746; 83540; 84425; 85027; 97803; 99211

== ENCOUNTER → 2018-05-21 | Outpatient (CLI) | payer BC ==
--- NOTE | 2018-05-21 16:00 | P.BASOAP ---
Subjective Progress Note Date: 05/21/18 Principal diagnosis: morbid obesity Patient returns today for a 3 month follow-up visit. Last seen in January. She has noticed about 2 pounds of weight loss since that time. She is exercising much more now than she had previously. More anaerobic then aerobic type exercise activities. He admits to still taking in too much carbohydrate. Has an appointment to see the dietitian today. One year labs were reviewed. Her only abnormality was a slightly low vitamin A level. She is already taking vitamin A supplementation. She admits to frequently missing her doses. Objective - Exam Abdomen: Soft, nontender, nondistended Assessment/Plan (1) Morbid obesity Narrative/Plan: Overall patient doing well. She believes that she is more tone then previously with all of the anaerobic exercising she is doing lately. She will work on her carbohydrate intake. She will increase her vitamin a to 10,000 units daily. Will see dietary today. Follow-up 3 months. Plan: Date: Initial Weight: 135.794 kg Initial BMI: Current Weight: Current BMI: Type of Surgery: Total Volume in Band: Previous Volume: Volume Removed: Volume Added: Band Size:
[2018-05-21 16:16] VITALS: BP 112/78; PULSE 68; TEMP 97.2; BMI 42.1
== END ==
LOC: BARWHC3 15:35
PROVIDERS: ATTEND Surgery
DX: E66.01 Morbid (severe) obesity due to excess calories (principal); Z68.41 Body mass index [BMI] 40.0-44.9, adult
CPT/HCPCS: 97803; 99211

== ENCOUNTER → 2018-08-20 | Outpatient (CLI) | payer BC ==
[2018-08-20 15:53] VITALS: BP 118/70; PULSE 65; RESP 16; TEMP 98.1; BMI 41.6
--- NOTE | 2018-08-20 17:18 | P.BASOAP ---
Subjective Progress Note Date: 08/20/18 Principal diagnosis: Morbid obesity Patient doing well today. She has lost a few pounds since her last visit. Given she is not doing well with her vitamin intake. Still working out at the [facility] approximate 4 times per week. No dysphagia. No GERD symptoms. Objective - Vital Signs Vital signs: Vital Signs Temp 98.1 F 08/20/18 15:50 Pulse 65 08/20/18 15:50 Resp 16 08/20/18 15:50 BP 118/70 08/20/18 15:50 Pulse Ox Intake & Output 08/19/18 08/20/18 08/20/18 18:59 06:59 18:59 Weight 106.594 kg - Exam Abdomen: Soft, nontender, nondistended Assessment/Plan (1) Morbid obesity Narrative/Plan: Patient doing fairly well. Encourage that she continue taking her vitamins daily. Continue dietary and exercise regimen. Follow-up 3 months. Plan: Date: 08/20/18 Initial Weight: 135.794 kg Initial BMI: 53.0 Current Weight: 106.594 kg Current BMI: 41.6 Type of Surgery: Total Volume in Band: Previous Volume: Volume Removed: Volume Added: Band Size:
== END | disposition home or self-care (01) ==
LOC: BARWHC3 15:39
PROVIDERS: ATTEND Surgery
DX: E66.01 Morbid (severe) obesity due to excess calories (principal); Z68.41 Body mass index [BMI] 40.0-44.9, adult
CPT/HCPCS: 97803; 99211

== ENCOUNTER → 2018-12-31 | Outpatient (CLI) | payer BC ==
[2018-12-31 13:28] VITALS: BP 119/63; PULSE 67; TEMP 97.8
[2018-12-31 14:42] LABS: HCT 35.7 % (34.0-46.0); HGB 11.1 gm/dL (11.4-16.0); MCH 27.1 pg (25.0-35.0); MCHC 31.2 g/dL (31.0-37.0); MCV 86.9 fL (80.0-100.0); Mean Platelet Volume 8.1; Platelet Count 234 k/uL (150-450); RBC 4.11 m/uL (3.80-5.40); RDW 14.9 % (11.5-15.5); WBC 6.9 k/uL (3.8-10.6)
--- NOTE | 2018-12-31 15:49 | P.BASOAP ---
Subjective Progress Note Date: 12/31/18 Principal diagnosis: Morbid obesity Patient returns for recheck. Still exercising however slightly less than she had been previously. 3 pound weight gain. No nausea or vomiting. Still on antiacids. She is due for annual labs. Objective - Vital Signs Vital signs: Vital Signs Temp 97.8 F 12/31/18 13:24 Pulse 67 12/31/18 13:24 Resp BP 119/63 12/31/18 13:24 Pulse Ox Intake & Output 12/30/18 12/31/18 12/31/18 18:59 06:59 18:59 Weight 106.594 kg - Exam Abdomen: Soft, nontender, nondistended - Labs CBC & Chem 7: 12/31/18 14:25 Labs: Abnormal Lab Results - Last 24 Hours (Table) 12/31/18 Range/Units 14:25 Hgb 11.1 L (11.4-16.0) gm/dL Assessment/Plan (1) Morbid obesity Narrative/Plan: Patient doing well at this time. Continue dietary and exercise regimen. Start calorie counts. Check 2 year labs at this time. Follow-up 3 months. Plan: Date: 12/31/18 Initial Weight: 135.794 kg Initial BMI: 53.0 Current Weight: 106.594 kg Current BMI: 41.6 Type of Surgery: Total Volume in Band: Previous Volume: Volume Removed: Volume Added: Band Size:
[2018-12-31 15:57] VITALS: BMI 42.1
[2018-12-31 20:01] LABS: Albumin 4.1 g/dL (3.80-4.90); Albumin/Globulin Ratio 1.52 (1.60-3.17); BUN/Creat Ratio 16.67 Ratio (12.00-20.00); Calcium 8.6 mg/dL (8.7-10.3); Globulin 2.7 g/dL (1.6-3.3); Total Bilirubin 0.3 mg/dL (0.2-1.2); Total Protein 6.8 g/dL (6.2-8.2)
[2018-12-31 20:16] LABS: Folate, Serum 9.4 ng/mL; Vitamin D 25 Hydroxy 29.7 ng/mL (30.0-100.0)
== END | disposition home or self-care (01) ==
LOC: BARWHC3 13:03
PROVIDERS: ATTEND Surgery
DX: E66.01 Morbid (severe) obesity due to excess calories (principal); K90.89 Other intestinal malabsorption; E55.9 Vitamin D deficiency, unspecified; Z68.41 Body mass index [BMI] 40.0-44.9, adult
CPT/HCPCS: 80053; 82306; 82607; 82746; 83540; 84425; 85027; 97803; 99211

== ENCOUNTER → 2019-04-01 | Outpatient (CLI) | payer BC ==
--- NOTE | 2019-04-01 22:21 | P.BASOAP ---
Subjective Progress Note Date: 04/01/19 Principal diagnosis: Morbid obesity Patient doing well since last visit. She has been exercising more. She has decreased her red meat intake. She has had 9 pound weight loss. Remains on antacids. No reflux. Objective - Exam Abdomen: Soft, nontender, nondistended Assessment/Plan (1) Morbid obesity Narrative/Plan: Patient is doing well at this time. Continue dietary and exercise regimen. Follow-up evaluation in 6 months. Plan: Date: Initial Weight: 135.794 kg Initial BMI: Current Weight: Current BMI: Type of Surgery: Total Volume in Band: Previous Volume: Volume Removed: Volume Added: Band Size:
[2019-04-02 09:08] VITALS: BP 117/84; PULSE 78; BMI 40.5
== END | disposition home or self-care (01) ==
LOC: BARWHC3 15:00
PROVIDERS: ATTEND Surgery
DX: Z09 Encounter for follow-up examination after completed treatment for conditions other than malignant neoplasm (principal); Z98.84 Bariatric surgery status; E66.01 Morbid (severe) obesity due to excess calories; Z68.41 Body mass index [BMI] 40.0-44.9, adult
CPT/HCPCS: 99211

== ENCOUNTER → 2019-06-20 | Outpatient (CLI) | payer BC ==
--- NOTE | 2019-06-20 14:10 | MM ---
Reason for exam: screening (asymptomatic). Baseline mammogram. History: Family history of breast cancer in aunt and breast cancer in paternal grandmother. Physical Findings: Nurse did not find any significant physical abnormalities on exam. MG Screening Mammo w CAD Bilateral CC and MLO view(s) were taken. There are scattered fibroglandular densities. There is no discrete abnormality. These results were verbally communicated with the patient and result sheet given to the patient on 06/20/19. ASSESSMENT: Negative, BI-RAD 1 RECOMMENDATION: Routine screening mammogram of both breasts at age 40.
== END | disposition home or self-care (01) ==
LOC: RADMAMWWP 13:21
PROVIDERS: ATTEND Family Medicine
DX: Z12.31 Encounter for screening mammogram for malignant neoplasm of breast (principal); Z80.3 Family history of malignant neoplasm of breast
CPT/HCPCS: 77067

== ENCOUNTER → 2020-09-29 | Outpatient (CLI) | payer BC ==
--- NOTE | 2020-09-30 10:31 | MM ---
Reason for exam: screening (asymptomatic). Last mammogram was performed 1 year and 3 months ago. History: Family history of breast cancer in aunt, breast cancer in paternal grandmother, and breast cancer in mother at age 62. Physical Findings: A clinical breast exam by your physician is recommended on an annual basis and results should be correlated with mammographic findings. MG Screening Mammo w CAD Bilateral CC and MLO view(s) were taken. Prior study comparison: June 20, 2019, bilateral MG screening mammo w CAD. There are scattered fibroglandular densities. There is no discrete abnormality. No significant changes when compared with prior studies. ASSESSMENT: Negative, BI-RAD 1 RECOMMENDATION: Routine screening mammogram of both breasts in 1 year.
== END | disposition home or self-care (01) ==
LOC: RADMAMWWP 08:01
PROVIDERS: ATTEND Family Medicine
DX: Z12.31 Encounter for screening mammogram for malignant neoplasm of breast (principal); Z80.3 Family history of malignant neoplasm of breast
CPT/HCPCS: 77067

== ENCOUNTER → 2021-05-17 | Outpatient (CLI) | payer BC ==
[2021-05-17 16:08] VITALS: BP 123/84; PULSE 83; RESP 18; TEMP 98.6; BMI 45.1
--- NOTE | 2021-05-17 16:57 | P.BASOAP ---
Subjective Progress Note Date: 05/17/21 Principal diagnosis: Morbid obesity patient returns for bariatric evaluation. Last seen 2 years ago. She is 4 years post sleeve gastrectomy. Has stopped exercising routinely as of 4-6 months ago. Weight increased by 25 pounds. Takes her antiacids once daily. Occasional breakthrough reflux controlled with calcium chews. Still eating less than one third of what she used to eat before her sleeve. No vomiting. No abdominal pain. Objective - Vital Signs Vital signs: Vital Signs Temp 98.6 F 05/17/21 16:05 Pulse 83 05/17/21 16:05 Resp 18 05/17/21 16:05 BP 123/84 05/17/21 16:05 Pulse Ox Intake & Output 05/16/21 05/17/21 05/17/21 18:59 06:59 18:59 Weight 115.53 kg - Exam Abdomen: Soft, nontender, nondistended Assessment/Plan (1) Morbid obesity Narrative/Plan: patient overall doing fairly well. Unfortunately her weight has increased further. She will start exercising on a more regular basis. Check annual labs. Return visit 6-12 months. Plan: Date: 05/17/21 Initial Weight: 135.794 kg Initial BMI: 53.0 Current Weight: 115.53 kg Current BMI: 45.1 Type of Surgery: Total Volume in Band: Previous Volume: Volume Removed: Volume Added: Band Size:
== END ==
LOC: BARWHC3 15:23
PROVIDERS: ATTEND Surgery
DX: E66.01 Morbid (severe) obesity due to excess calories (principal); Z68.42 Body mass index [BMI] 45.0-49.9, adult; Z98.84 Bariatric surgery status
CPT/HCPCS: 99211

== ENCOUNTER → 2021-05-28 | Outpatient (CLI) | payer BC ==
[2021-05-28 17:31] LABS: HCT 32.7 % (37.2-46.3); HGB 9.4 g/dL (12.0-15.0); MCHC 28.7 g/dL (32.0-37.0); MCV 80.1 fL (80.0-97.0); Mean Platelet Volume 10.5 fL (9.5-12.2); Platelet Count 386 X 10*3/uL (140-440); RBC 4.08 X 10*6/uL (4.10-5.20); RDW 16.8 % (11.5-14.5); WBC 5.54 X 10*3/uL (4.50-10.00)
[2021-05-28 18:30] LABS: African American GFR (CKD) 106.9 (60.0-200.0); Albumin/Globulin Ratio 1.25 (1.60-3.17); Anion Gap 9.6 mmol/L (10.00-18.00); BUN/Creat Ratio 13.88 Ratio (12.00-20.00); Blood Urea Nitrogen 11.1 mg/dL (9.0-27.0); Calcium 8.9 mg/dL (8.7-10.3); Carbon Dioxide 22.4 mmol/L (20.0-27.5); Folate, Serum 5.9 ng/mL (4.40-31.00); Globulin 3.2 g/dL (1.6-3.3); Non-African American GFR(CKD) 92.2 (60.0-200.0); Potassium 4.3 mmol/L (3.5-5.5); Total Bilirubin 0.2 mg/dL (0.30-1.20); Total Protein 7.2 g/dL (6.2-8.2)
== END | disposition home or self-care (01) ==
LOC: LABWHC1 05-27 14:51
PROVIDERS: ATTEND Surgery
DX: K90.89 Other intestinal malabsorption (principal); E55.9 Vitamin D deficiency, unspecified; E66.01 Morbid (severe) obesity due to excess calories
CPT/HCPCS: 36415; 80053; 82306; 82607; 82746; 83540; 84425; 85027

== ENCOUNTER → 2021-10-19 | Outpatient (CLI) | payer BC ==
--- NOTE | 2021-10-20 12:55 | MM ---
Reason for exam: screening (asymptomatic). Last mammogram was performed 1 year and 1 month ago. History: Family history of breast cancer in maternal aunt and breast cancer in mother at age 63. Taking hormonal contraceptives for 1 year. Physical Findings: A clinical breast exam by your physician is recommended on an annual basis and results should be correlated with mammographic findings. MG Screening Mammo w CAD Bilateral CC, MLO, and XCCL view(s) were taken. Prior study comparison: September 29, 2020, bilateral MG screening mammo w CAD. June 20, 2019, bilateral MG screening mammo w CAD. There are scattered fibroglandular densities. There is no discrete abnormality. ASSESSMENT: Negative, BI-RAD 1 RECOMMENDATION: Routine screening mammogram of both breasts in 1 year.
== END | disposition home or self-care (01) ==
LOC: RADMAMWWP 15:01
PROVIDERS: ATTEND Family Medicine
DX: Z12.31 Encounter for screening mammogram for malignant neoplasm of breast (principal); Z80.3 Family history of malignant neoplasm of breast
CPT/HCPCS: 77067

== ENCOUNTER → 2022-06-26 | Outpatient (CLI) | payer BC ==
--- NOTE | 2022-06-27 06:22 | CT ---
EXAMINATION TYPE: CT abdomen pelvis w con DATE OF EXAM: 06/26/2022 HISTORY: Abdomen pain not further specified. CT DLP: 1983mGycm Automated Exposure Control for Dose Reduction was Utilized. CONTRAST: CT scan of the abdomen and pelvis is performed with oral and with IV Contrast, patient injected with 70cc mL of Isovue 300. COMPARISON: None. FINDINGS: LUNG BASES: No significant abnormality is appreciated. LIVER/GB: Intraluminal gallstones. No surrounding fluid or fat stranding. PANCREAS: No significant abnormality is seen. SPLEEN: No significant abnormality is seen. ADRENALS: No significant abnormality is seen. KIDNEYS: No significant abnormality is seen. BOWEL: Oral contrast does not reach level of the terminal ileum making evaluation of distal bowel sli ghtly suboptimal. Normal-appearing appendix in the right mid abdomen noted coronal image 51. There ar e surgical changes from gastric sleeve procedure noted. UTERUS/ADNEXA: Slightly retroverted uterus extends to left of midline. There is 3.7 x 3.1 cm heteroge neous slightly low dense lesion right ovary could reflect hemorrhagic cyst axial image 74. Finding ca n be better evaluated with pelvic ultrasound if desired. LYMPH NODES: No greater than 1cm abdominal or pelvic lymph nodes are appreciated. OSSEOUS STRUCTURES: No significant abnormality is seen. OTHER: No significant additional abnormality is seen. IMPRESSION: No bowel obstruction. No significant acute finding is seen to account for patient's clini phoebe symptoms.
== END | disposition home or self-care (01) ==
LOC: RADCTMAIN 14:05
PROVIDERS: ATTEND Family Medicine
DX: R10.9 Unspecified abdominal pain (principal)
CPT/HCPCS: 74177; Q9967 ×2

== ENCOUNTER → 2022-11-27 | Outpatient (CLI) | payer BC ==
[2022-11-27 20:35] LABS: C Reactive Protein 0.9 mg/dL; Protein, Total 7.7 d/dL
[2022-11-28 08:41] LABS: Erythrocyte Sedimentation Rate 55 mm/Hr
[2022-11-28 14:12] LABS: APTT 44 Sec(s) (<43); APTT 1:1 Mix 38 Sec(s) (<43); Dilute Russell Viper Venom 40 Sec(s) (<44)
[2022-11-28 18:51] LABS: EBV-EA (IgG) <0.2 AI; EBV-EBNA(IgG) >8.0; EBV-VCA (IgG) >8.0 AI
== END | disposition home or self-care (01) ==
LOC: LABWHC1 14:29
PROVIDERS: ATTEND Physical Medicine & Rehabilitation
DX: Z00.01 Encounter for general adult medical examination with abnormal findings (principal); Z15.09 Genetic susceptibility to other malignant neoplasm; E66.01 Morbid (severe) obesity due to excess calories; K86.81 Exocrine pancreatic insufficiency; D63.8 Anemia in other chronic diseases classified elsewhere; D52.0 Dietary folate deficiency anemia; F43.0 Acute stress reaction; R74.01 Elevation of levels of liver transaminase levels; R77.1 Abnormality of globulin
CPT/HCPCS: 36415; 82784; 83615; 83883; 84165; 85045; 85613; 85652; 85730; 86038; 86039; 86140; 86644; 86645; 86663; 86664; 86665; 86671

== ENCOUNTER → 2022-11-27 | Outpatient (CLI) | payer BC ==
--- NOTE | 2022-11-28 08:07 | MM ---
Reason for Exam: Screening (asymptomatic). Last mammogram was performed 1 year(s) and 2 month(s) ago. Patient History: Menarche at age 10. Patient has no children. Currently using Hormonal Contraceptives, for 1 year. Maternal aunt had breast cancer. Mother had breast cancer, age 63. Last menstrual period: 10/27/2022 Risk Values: Lara 5 year model risk: 1.1%. NCI Lifetime model risk: 14.8%. Prior Study Comparison: 06/20/2019 Bilateral Screening Mammogram, [facility]. 09/29/2020 Bilateral Screening Mammogram, [facility]. 10/19/2021 Bilateral Screening Mammogram, [facility]. Tissue Density: There are scattered fibroglandular densities. Findings: Analyzed By CAD. There is no suspicious group of microcalcifications or new suspicious mass in either breast. Overall Assessment: Negative, BI-RAD 1 Management: Screening Mammogram of both breasts in 1 year. . Patient should continue monthly self-breast exams. A clinical breast exam by your physician is recommended on an annual basis. This exam should not preclude additional follow-up of suspicious palpable abnormalities. Note on Lara scores and lifetime risk: 1. A Lara score greater than 3% is considered moderate risk. If this is the case, consider specialist referral to assess eligibility for a risk reducing agent. 2. If overall lifetime risk for the development of breast cancer is 20% or higher, the patient may qualify for future screening with alternating mammogram and breast MRI. Electronically signed and approved by: Saud Mohan M.D. Radiologis
== END | disposition home or self-care (01) ==
LOC: RADMAMWWP 14:06
PROVIDERS: ATTEND Family Medicine
DX: Z12.31 Encounter for screening mammogram for malignant neoplasm of breast (principal); Z80.3 Family history of malignant neoplasm of breast
CPT/HCPCS: 77067

== ENCOUNTER → 2023-05-23 | Outpatient (CLI) | payer BC ==
--- NOTE | 2023-05-23 15:15 | USB ---
Reason for Exam: Clinical finding. Patient History: Menarche at age 10. Patient has no children. Currently using Hormonal Contraceptives, for 1 year. Maternal aunt had breast cancer. Mother had breast cancer, age 63. Risk Values: Lara 5 year model risk: 1.1%. NCI Lifetime model risk: 14.8%. Technique: Method: Targeted. Prior Study Comparison: 09/29/2020 Bilateral Screening Mammogram, [facility]. 10/19/2021 Bilateral Screening Mammogram, [facility]. 11/27/2022 Bilateral MG screening mammo w CAD, [facility]. Findings: The upper section of the breast of both breasts and the axilla of both breasts were scanned. Technique utilized:US breast limited BILAT Image; Ultrasound imaging of: Area of concern, retroareolar region and axilla. No evidence for organizing fluid collection or mass. No finding to correlate with the patient's pain bilaterally. Overall Assessment: Negative, BI-RAD 1 Management: Screening Mammogram of both breasts in 1 year. A clinical breast exam by your physician is recommended on an annual basis and results should be correlated with mammographic findings. This exam should not preclude additional follow-up of suspicious palpable abnormalities. Results were given to the patient verbally at the time of exam. Electronically signed and approved by: David Montgomery DO
--- NOTE | 2023-05-23 15:15 | MM ---
Reason for Exam: Clinical finding. Last screening mammogram was performed 5 month(s) ago. Patient History: Menarche at age 10. Patient has no children. Currently using Hormonal Contraceptives, for 1 year. Maternal aunt had breast cancer. Mother had breast cancer, age 63. Last menstrual period: 04/24/2023 Risk Values: Lara 5 year model risk: 1.1%. NCI Lifetime model risk: 14.8%. Prior Study Comparison: 06/20/2019 Bilateral Screening Mammogram, [facility]. 09/29/2020 Bilateral Screening Mammogram, [facility]. 10/19/2021 Bilateral Screening Mammogram, [facility]. 11/27/2022 Bilateral MG screening mammo w CAD, [facility]. Tissue Density: The breast tissue is almost entirely fat. Findings: Analyzed By CAD. No new suspicious masses, calcifications or distortions. Overall Assessment: Incomplete: need additional imaging evaluation, BI-RAD 0 Management: Diagnostic Breast Ultrasound of both breasts. Results were given to the patient verbally at the time of exam. Patient should continue monthly self-breast exams. A clinical breast exam by your physician is recommended on an annual basis. This exam should not preclude additional follow-up of suspicious palpable abnormalities. Note on Lara scores and lifetime risk: 1. A Lara score greater than 3% is considered moderate risk. If this is the case, consider specialist referral to assess eligibility for a risk reducing agent. 2. If overall lifetime risk for the development of breast cancer is 20% or higher, the patient may qualify for future screening with alternating mammogram and breast MRI. Electronically signed and approved by: David Montgomery DO
== END | disposition home or self-care (01) ==
LOC: RADMAMWWP 14:28
PROVIDERS: ATTEND Family Medicine
DX: N64.4 Mastodynia (principal); R92.313 Mammographic fatty tissue density, bilateral breasts; Z80.3 Family history of malignant neoplasm of breast
CPT/HCPCS: 77062; 77066

== ENCOUNTER → 2024-09-17 | Outpatient (CLI) | payer BC ==
--- NOTE | 2024-09-17 11:18 | MM ---
Reason for Exam: Screening (asymptomatic). Last mammogram was performed 1 year(s) and 4 month(s) ago. Patient History: Menarche at age 10. Patient has no children. Patient used Hormonal Contraceptives for 1 year. Maternal aunt had breast cancer. Mother had breast cancer, age 63. Risk Values: Lara 5 year model risk: 1.2%. NCI Lifetime model risk: 14.7%. Prior Study Comparison: 10/19/2021 Bilateral Screening Mammogram, [facility]. 11/27/2022 Bilateral MG screening mammo w CAD, [facility]. 05/23/2023 Bilateral MG 3D diag mammo w/cad [place], [facility]. Tissue Density: There are scattered areas of fibroglandular density. Findings: Analyzed By CAD. There is no suspicious group of microcalcifications or new suspicious mass in either breast. Overall Assessment: Benign, BI-RAD 2 Management: Screening Mammogram of both breasts in 1 year. . Patient should continue monthly self-breast exams. A clinical breast exam by your physician is recommended on an annual basis. This exam should not preclude additional follow-up of suspicious palpable abnormalities. Note on Lara scores and lifetime risk: 1. A Lara score greater than 3% is considered moderate risk. If this is the case, consider specialist referral to assess eligibility for a risk reducing agent. 2. If overall lifetime risk for the development of breast cancer is 20% or higher, the patient may qualify for future screening with alternating mammogram and breast MRI. [facility], , 09/17/2024 11:15 AM. Electronically signed and approved by: Rudy Sandoval M.D. Radiologis
== END | disposition home or self-care (01) ==
LOC: RADMAMWWP 09:03
PROVIDERS: ATTEND Family Medicine
DX: Z12.31 Encounter for screening mammogram for malignant neoplasm of breast (principal); R92.323 Mammographic fibroglandular density, bilateral breasts; Z92.0 Personal history of contraception; Z80.3 Family history of malignant neoplasm of breast
CPT/HCPCS: 77063; 77067